=== PATIENT | male | born 1960 | race Caucasian/White ===

== ENCOUNTER 2021-05-24 08:58 | Outpatient (CLI) | payer BC ==
[2021-05-24] MEDS ORDERED: Iopamidol 370 76% 100 ML VIAL ONE (09:06)
[2021-05-24 09:48] LABS: Estimated GFR-MDRD - POC Greater than 90
== END 2021-05-24 08:59 | disposition home or self-care (01) ==
LOC: CT 08:58
PROVIDERS: ATTEND Internal Medicine Hematology & Oncology
DX: C61 Malignant neoplasm of prostate (principal); C78.7 Secondary malignant neoplasm of liver and intrahepatic bile duct; C79.51 Secondary malignant neoplasm of bone; K76.9 Liver disease, unspecified; N28.1 Cyst of kidney, acquired; M89.8X6 Other specified disorders of bone, lower leg
CPT/HCPCS: 74177; 78306; 82565; A9503; Q9967

== ENCOUNTER 2021-10-31 09:11 | Outpatient (CLI) | payer BC ==
[2021-10-31 09:45] LABS: Estimated GFR-MDRD - POC Greater than 90
== END 2021-10-31 09:12 | disposition home or self-care (01) ==
LOC: CT 09:11
PROVIDERS: ATTEND Internal Medicine Hematology & Oncology
DX: C79.51 Secondary malignant neoplasm of bone (principal); C78.7 Secondary malignant neoplasm of liver and intrahepatic bile duct; C61 Malignant neoplasm of prostate; R91.8 Other nonspecific abnormal finding of lung field; K76.89 Other specified diseases of liver; R93.2 Abnormal findings on diagnostic imaging of liver and biliary tract
CPT/HCPCS: 71260; 74177; 78306; 82565; A9503